=== PATIENT | male | born 1960 | race Two or more races ===

== ENCOUNTER 2016-07-15 10:50 | Outpatient (CLI) | payer BC, OTHER | END 2016-07-15 23:59 | disposition home or self-care (01) | LOC: LAB 10:50 | DX: E03.9 Hypothyroidism, unspecified (principal) | CPT/HCPCS: 84443; 84480 ==

== ENCOUNTER → 2020-12-15 | Outpatient (CLI) | payer BC, OTHER | END | disposition home or self-care (01) | LOC: US 16:40 | PROVIDERS: ATTEND Family Medicine | DX: E04.1 Nontoxic single thyroid nodule (principal) ==

== ENCOUNTER → 2022-08-09 | Outpatient (CLI) | payer BC, OTHER | END | disposition home or self-care (01) | LOC: RAD 13:02 | PROVIDERS: ATTEND Family Medicine | DX: M79.672 Pain in left foot (principal); M79.671 Pain in right foot ==